=== PATIENT | female | born 1990 | race Asian ===

== ENCOUNTER 2021-11-21 04:25 | Day surgery (SDC) | payer BC, OTHER ==
[2021-11-20 15:15] VITALS: BMI 37.7
[2021-11-21] MEDS ORDERED: PROPOFOL 20 ML ONE (09:55)
[2021-11-21] MEDS ORDERED: MIDAZOLAM HCL 2 MG/2 ML SINGLE DOSE VIAL ONE (09:55)
[2021-11-21] MEDS ORDERED: DEXAMETHASONE SOD PHOSPHATE 4 MG/1 ML VIAL ONE (10:12)
[2021-11-21] MEDS ORDERED: ceFAZolin SODIUM 1 GM VIAL ONE (10:12)
[2021-11-21] MEDS ORDERED: KETOROLAC TROMETHAMINE 30 MG/1 ML VIAL ONE (10:12)
[2021-11-21] MEDS ORDERED: ceFAZolin SODIUM 1 GM VIAL IVPB ONE (10:13)
[2021-11-21] MEDS ORDERED: OXYTOCIN 10 UNITS/ML VIAL ONE ×2 (10:19)
[2021-11-21] MEDS ORDERED: oxyCODONE HCL 5 MG TABLET PO PRN (10:38)
[2021-11-21] MEDS ORDERED: LACTATED RINGERS SOLUTION 1,000 ML IV SCH (10:45)
[2021-11-21] MEDS ORDERED: IBUPROFEN 400 MG TABLET (FP) PO PRN (10:48)
[2021-11-21] MEDS ORDERED: ACETAMINOPHEN 325 MG TABLET (FP) PO PRN (10:48)
[2021-11-21] MEDS ORDERED: METHYLERGONOVINE MALEATE 0.2 MG TABLET (FP) PO ONE (11:00)
[2021-11-21 13:08] VITALS: BP 122/69; PULSE 84; TEMP 97.5
== END 2021-11-21 13:11 | disposition home or self-care (01) ==
LOC: JASU-SURG 04:25
PROVIDERS: ATTEND Specialist
PROC: 10D07Z8 Extraction of Products of Conception, Other, Via Natural or Artificial Opening (ICD-10-PCS; principal; 2021-11-21 09:30)
DX: O02.1 Missed abortion (principal)
CPT/HCPCS: 86850; 86900; 86901; 94760

== ENCOUNTER 2022-12-16 07:20 | Inpatient (IN) | payer BC, OTHER ==
[2022-12-16] MEDS: ELECTROLYTE-148 SOLN 1,000 ML IV SCH ×3 (08:15→21:22)
[2022-12-16 08:37] VITALS: BMI 40.7
[2022-12-16] MEDS ORDERED: OXYTOCIN 30 UNITS in 0.9% NS 30 UNIT/500 ML INFUS.BAG IVPB ONE (08:55)
[2022-12-16] MEDS ORDERED: OXYTOCIN 30 UNITS in 0.9% NS 30 UNIT/500 ML INFUS.BAG IVPB SCH (09:30)
[2022-12-16] MEDS ORDERED: DEXTROSE 5%-WATER - 500 ML IV ONE (21:00)
[2022-12-16] MEDS ORDERED: OXYTOCIN 20 UNITS in 0.9% NS 20 UNIT/1,000 ML INFUS.BAG IV ONE (22:16)
[2022-12-16] MEDS ORDERED: SODIUM CHLORIDE 0.9% P/F 10 ML VIAL IJ ONE (22:17)
[2022-12-16] MEDS ORDERED: ONDANSETRON 4 MG/2 ML VIAL ONE (22:17)
[2022-12-16] MEDS ORDERED: ceFAZolin SODIUM 1 GM VIAL ONE (22:17)
[2022-12-16] MEDS ORDERED: PHENYLEPHRINE HCL 10 MG/1 ML SINGLE DOSE VIAL ONE (22:17)
[2022-12-16] MEDS ORDERED: KETOROLAC TROMETHAMINE 30 MG/1 ML VIAL ONE (22:17)
[2022-12-16] MEDS ORDERED: morphine SULFATE (PF) 1 MG/2 ML SYRINGE ONE (22:17)
[2022-12-16] MEDS ORDERED: FENTANYL CITRATE/PF 50 MCG/ML VIAL ONE (22:18)
[2022-12-16] MEDS ORDERED: ePHEDrine SULFATE 50 MG/1 ML AMPULE ONE (22:18)
[2022-12-16] MEDS ORDERED: CITRIC ACID/SODIUM CITRATE 30 ML UNIT-DOSE CUP PO ONE (22:26)
[2022-12-16] MEDS ORDERED: OXYTOCIN 20 UNITS in 0.9% NS 20 UNIT/1,000 ML INFUS.BAG IV SCH (23:45)
[2022-12-16] MEDS ORDERED: oxyCODONE HCL 5 MG TABLET PO PRN (23:49)
[2022-12-16] MEDS ORDERED: ACETAMINOPHEN 325 MG TABLET (FP) PO PRN (23:49)
[2022-12-16] MEDS ORDERED: IBUPROFEN 800 MG/8 ML IJ IVPB PRN (23:49)
[2022-12-16] MEDS ORDERED: SIMETHICONE 80 MG TAB.CHEW (FP) PO PRN (23:49)
[2022-12-16] MEDS ORDERED: ONDANSETRON 4 MG/2 ML VIAL IVPB PRN (23:49)
[2022-12-16] MEDS ORDERED: SENNOSIDES/DOCUSATE COMBO (SENNA PLUS) TABLET (UD) PO PRN (23:49)
[2022-12-16] MEDS ORDERED: IBUPROFEN 600 MG TABLET (FP) PO PRN (23:49)
[2022-12-16] MEDS ORDERED: ACETAMINOPHEN 1000 MG/100 ML BAG IVPB PRN (23:49)
[2022-12-17] MEDS ORDERED: morphine SULFATE/PF 1 MG/2 ML (2cc Syringe - QUVA) EP ONE (00:12)
[2022-12-17] MEDS ORDERED: ONDANSETRON 4 MG/2 ML VIAL IVPUSH PRN (00:12)
[2022-12-17] MEDS: CEFAZOLIN 2 GM in DEXTROSE 5%-WATER - 50 ML IVPB SCH ×2 (02:27→11:29)
[2022-12-17 07:40] LABS: BASO % 0.2 % (0-2.0); EOS % 0.2 % (0-4.5); HEMATOCRIT 36.1 % (32.4-45.2); LYMPH % 12.9 % (8-40); MCH 29.8 pg (25.7-33.7); MCHC 33.3 g/dl (32.0-36.0); MEAN CELL VOLUME 89.4 fl (80-96); MEAN PLT VOLUME 10.2 fl (7.5-11.1); MONO % 7.5 % (3.8-10.2); NEUT % 79.2 % (42.8-82.8); PLATELET COUNT 150 10^3/uL (134-434); RBC 4.03 M/mm3 (3.60-5.2); RDW 14.8 % (11.6-15.6); WHITE BLOOD COUNT 10.1 K/mm3 (4.0-10.0)
[2022-12-17] MEDS: LEVOTHYROXINE NA 50 MCG TABLET (FP) PO SCH (07:59)
[2022-12-17 20:39] VITALS: TEMP 98.6
[2022-12-17] MEDS ORDERED: BISACODYL 10 MG SUPP.RECT RC PRN (23:49)
[2022-12-18] MEDS: LEVOTHYROXINE NA 50 MCG TABLET (FP) PO SCH (06:19)
[2022-12-18] MEDS ORDERED: LEVOTHYROXINE NA 50 MCG TABLET (FP) PO SCH (07:00)
[2022-12-18 08:00] VITALS: BP 111/76; PULSE 102; RESP 16
== END 2022-12-18 15:25 | disposition home or self-care (01) | DRG 788 ==
LOC: JLDR 07:20 → J3W 12-17 01:24
PROVIDERS: ADMIT Specialist; ATTEND Specialist
PROC: 10D00Z1 Extraction of Products of Conception, Low, Open Approach (ICD-10-PCS; principal; 2022-12-17)
DX: O36.8330 Maternal care for abnormalities of the fetal heart rate or rhythm, third trimester, not applicable or unspecified (principal); O99.284 Endocrine, nutritional and metabolic diseases complicating childbirth; O99.214 Obesity complicating childbirth; O61.9 Failed induction of labor, unspecified; O24.424 Gestational diabetes mellitus in childbirth, insulin controlled; Z3A.38 38 weeks gestation of pregnancy; Z37.0 Single live birth
CPT/HCPCS: 36415; 82962; 85025; 88307-TC

== ENCOUNTER 2024-02-04 05:55 | Inpatient (IN) | payer BC, OTHER ==
[2024-02-04] MEDS: ELECTROLYTE-148 SOLN 500 ML IV SCH ×2 (06:15→07:30)
[2024-02-04 06:37] VITALS: BMI 43.2
[2024-02-04] MEDS: CITRIC ACID/SODIUM CITRATE 30 ML UNIT-DOSE CUP PO ONE ×2 (06:50→10:04)
[2024-02-04] MEDS ORDERED: ONDANSETRON 4 MG/2 ML VIAL IVPUSH PRN (08:11)
[2024-02-04] MEDS ORDERED: morphine SULFATE/PF 1 MG/2 ML (2cc Syringe - QUVA) ONE (08:21)
[2024-02-04] MEDS ORDERED: FENTANYL CITRATE/PF 50 MCG/ML VIAL ONE (08:21)
[2024-02-04] MEDS ORDERED: ONDANSETRON 4 MG/2 ML VIAL ONE (08:36)
[2024-02-04] MEDS ORDERED: ceFAZolin SODIUM 1 GM VIAL ONE (08:36)
[2024-02-04] MEDS ORDERED: OXYTOCIN 10 UNITS/ML VIAL ONE ×3 (08:45→10:14)
[2024-02-04] MEDS ORDERED: ACETAMINOPHEN 325 MG TABLET (FP) PO PRN (09:31)
[2024-02-04] MEDS ORDERED: oxyCODONE HCL 5 MG TABLET PO PRN (09:31)
[2024-02-04] MEDS ORDERED: IBUPROFEN 800 MG/8 ML IJ IVPB PRN (09:31)
[2024-02-04] MEDS ORDERED: WITCH HAZEL 50% (TUCKS) 40 PAD/JAR PAD TP PRN (09:31)
[2024-02-04] MEDS ORDERED: ONDANSETRON 4 MG/2 ML VIAL IVPB PRN (09:31)
[2024-02-04] MEDS ORDERED: OXYTOCIN 20 UNITS in 0.9% NS 20 UNIT/1,000 ML INFUS.BAG IV SCH (09:45)
[2024-02-04] MEDS ORDERED: D5W-LR W/ 20 UNITS OXYTOCIN 20 UNIT/1,000 ML INFUS.BAG IV SCH (10:15)
[2024-02-04] MEDS: OXYTOCIN 20 UNITS in DEXTROSE 5%-LACTATED RINGERS 1,000 ML IV SCH (10:15)
[2024-02-04] MEDS: METHYLERGONOVINE MALEATE 0.2 MG/1 ML AMP IM ONE (11:35)
[2024-02-04] MEDS: ELECTROLYTE-148 SOLN 500 ML IV ONE (11:43)
[2024-02-04] MEDS: OXYTOCIN 20 UNITS in 0.9% NS 20 UNIT/1,000 ML INFUS.BAG IV SCH (18:30)
[2024-02-04] MEDS: SENNOSIDES/DOCUSATE COMBO (SENNA PLUS) TABLET (UD) PO SCH (22:15)
[2024-02-05] MEDS: ACETAMINOPHEN 1000 MG/100 ML BAG IVPB PRN (00:39)
[2024-02-05 08:30] LABS: BASO % 0.1 % (0-2.0); HEMATOCRIT 34.9 % (32.4-45.2); HEMOGLOBIN 11.5 GM/dL (10.7-15.3); LYMPH % 12.4 % (8-40); MCH 28.6 pg (25.7-33.7); MEAN CELL VOLUME 86.5 fl (80-96); MEAN PLT VOLUME 11.1 fl (7.5-11.1); MONO % 11.4 % (3.8-10.2); NEUT % 75.1 % (42.8-82.8); PLATELET COUNT 153 10^3/uL (134-434); RBC 4.03 M/mm3 (3.60-5.2); RDW 14.2 % (11.6-15.6); WHITE BLOOD COUNT 8.6 K/mm3 (4.0-10.0)
[2024-02-05] MEDS ORDERED: BISACODYL 10 MG SUPP.RECT RC PRN (09:31)
[2024-02-05] MEDS ORDERED: SODIUM CHLORIDE 1,000 ML IV STA (16:39)
[2024-02-05] MEDS: SIMETHICONE 80 MG TAB.CHEW (FP) PO PRN (19:43)
[2024-02-05] MEDS: IBUPROFEN 600 MG TABLET (FP) PO PRN (19:43)
[2024-02-06 10:31] VITALS: BP 113/67; PULSE 98; RESP 17; TEMP 97.8
== END 2024-02-06 13:05 | disposition home or self-care (01) | DRG 788 ==
LOC: JLDR 05:55 → J3W 12:25
PROVIDERS: ADMIT Specialist; ATTEND Specialist
PROC: 10D00Z1 Extraction of Products of Conception, Low, Open Approach (ICD-10-PCS; principal; 2024-02-04)
DX: O34.211 Maternal care for low transverse scar from previous cesarean delivery (principal); O99.214 Obesity complicating childbirth; O24.424 Gestational diabetes mellitus in childbirth, insulin controlled; Z3A.39 39 weeks gestation of pregnancy; Z37.0 Single live birth
CPT/HCPCS: 36415; 82962; 84443; 85025; 88304-TC; 88307-TC; 94010; J0131